=== PATIENT | male | born 1960 | race Caucasian/White ===

== ENCOUNTER 2022-09-03 10:00 | Observation (INO) | payer BC, OTHER ==
[~2022-09-03] VITALS: Ht 172.7 cm; Wt 147.4 kg
[~2022-09-03 10:00] MED LIST: ALLOPURINOL300 MG PO; ASPIR 8181 MG PO; AZOR 5-40 MG T1 EACH PO; AZOR PO; CRESTOR PO; CRESTOR40 MG PO; INSULIN SQ; LEVEMIR100 UNIT/1 SQ; LEVOTHYROXINE200 MCG PO; TRICOR145 MG PO; ZETIA10 MG PO
[2022-09-03] MEDS ORDERED: ONDANSETRON HCL INJ 2MG/ML 2ML 2 MG/ML VIAL IV STA (10:30)
[2022-09-03] MEDS ORDERED: SODIUM CHLORIDE 0.9% 1000ML 1,000 ML IV STA (10:30)
[2022-09-03 11:04] LABS: BASOPHILS # (AUTO) 0.1 (0.0-0.1); BASOPHILS % 0.6 % (0.0-1.0); EOSINOPHILS # (AUTO) 0.1 (0.0-0.4); EOSINOPHILS % 0.9 % (0.0-6.0); HEMATOCRIT 51.8 % (38.2-49.6); HEMOGLOBIN 16.5 g/dL (14.0-18.0); LYMPHOCYTES # (AUTO) 1.7 (1.0-3.2); LYMPHOCYTES % 15.8 % (18.0-39.1); MEAN CORPUSCULAR HEMOGLOBIN 30.4 pg (28-32); MEAN CORPUSCULAR HGB CONC 31.9 g/dL (31-35); MEAN CORPUSCULAR VOLUME 95.6 fL (81-99); MONOCYTES # (AUTO) 1.2 (0.2-0.8); NEUTROPHILS # (AUTO) 7.4 (2.1-6.9); NEUTROPHILS % 69.9 % (38.7-80.0); PLATELET COUNT 366 x10e3/uL (140-360); RED BLOOD COUNT 5.42 x10e6/uL (4.3-5.7); RED CELL DISTRIBUTION WIDTH 13.7 % (11.7-14.4)
[2022-09-03 11:10] LABS: CLARITY,URINE CLEAR (CLEAR); COLOR,URINE YELLOW (YELLOW); KETONES,URINE TRACE (NEGATIVE); LEUKOCYTE ESTERASE ,URINE NEGATIVE (NEGATIVE); NITRITE,URINE NEGATIVE (NEGATIVE); PROTEIN,URINE DIPSTICK 1+ (NEGATIVE); URINE UROBILINOGEN 0.2 mg/dL (0.2 - 1)
[2022-09-03 11:27] LABS: INR 0.94; PROTHROMBIN TIME 13.4 seconds (11.9-14.5)
[2022-09-03 11:28] LABS: PARTIAL THROMBOPLASTIN TIME 25.1 seconds (23.8-35.5)
[2022-09-03 11:30] LABS: BACTERIA,URINE MODERATE /HPF; EPITHELIAL CELLS,URINE MODERATE /LPF; RBC,URINE 0-5 /HPF (0-5); TRANSITIONAL EPI CELLS,URINE FEW
[2022-09-03 11:39] LABS: ALBUMIN 3.5 g/dL (3.5-5.0); ALBUMIN/GLOBULIN RATIO 1.1 (0.8-2.0); ANION GAP 21.5 mmol/L (8-16); CALCIUM 9.7 mg/dL (8.4-10.2); CREATININE, SERUM 1.73 mg/dL (0.72-1.25); MAGNESIUM 2.3 MG/DL (1.3-2.1); POTASSIUM 4.5 mmol/L (3.5-5.1)
[2022-09-03 11:45] LABS: CREATINE KINASE MB 1.8 ng/mL (0-5.0)
[2022-09-03] MEDS ORDERED: IOPAMIDOL 370 MG/ML 100 ML INFUS..BTL INJ ONE (12:23)
[2022-09-03] MEDS ORDERED: ONDANSETRON HCL INJ 2MG/ML 2ML 2 MG/ML VIAL IV PRN (12:30)
[2022-09-03 12:43] LABS: ABG HCO3 22 mmol/L (22-26); ABG PCO2 38 mmHg (35-45); ABG PH 7.36 (7.35-7.45); ABG PO2 98 mmHg (80-105); ABG TCO2 22
[2022-09-03] MEDS ORDERED: CEFTRIAXONE 1 GM VIAL ONE (12:52)
[2022-09-03] MEDS: SODIUM CHLORIDE 0.9% 1000ML 1,000 ML IV SCH ×2 (12:55→23:45)
[2022-09-03] MEDS ORDERED: HYDRALAZINE HCL 20 MG/ML VIAL IV PRN (13:30)
[2022-09-03] MEDS ORDERED: Morphine 2mg Syringe 2 MG/ML SYR IV PRN (14:15)
[2022-09-03] MEDS: FAMOTIDINE 20 MG/2 ML VIAL IV SCH (17:00)
[2022-09-03] MEDS ORDERED: SYNJARDY 12.5-1 EACH PO (18:28)
[2022-09-03] MEDS ORDERED: GLIMEPIRIDE4 MG PO (18:28)
[2022-09-03 18:35] VITALS: BP 100/53
[2022-09-03 18:45] VITALS: BP 100/53
[2022-09-03 19:36] LABS: CREATINE KINASE MB 1.4 ng/mL (0-5.0)
[2022-09-03 21:00] VITALS: BP 100/53
[2022-09-04] VITALS (7 sets, daily range): BP systolic 102–134; BP diastolic 55–74
[2022-09-04 00:15] LABS: CREATINE KINASE 54 IU/L (30-200)
[2022-09-04 04:54] LABS: BASOPHILS # (AUTO) 0.1 (0.0-0.1); BASOPHILS % 0.7 % (0.0-1.0); EOSINOPHILS # (AUTO) 0.1 (0.0-0.4); EOSINOPHILS % 1.3 % (0.0-6.0); HEMATOCRIT 48.7 % (38.2-49.6); HEMOGLOBIN 15.2 g/dL (14.0-18.0); LYMPHOCYTES # (AUTO) 1.6 (1.0-3.2); LYMPHOCYTES % 17.7 % (18.0-39.1); MEAN CORPUSCULAR HGB CONC 31.2 g/dL (31-35); MEAN CORPUSCULAR VOLUME 99.4 fL (81-99); MONOCYTES % 10.6 % (4.4-11.3); NEUTROPHILS # (AUTO) 6.2 (2.1-6.9); NEUTROPHILS % 67.8 % (38.7-80.0); PLATELET COUNT 279 x10e3/uL (140-360); RED CELL DISTRIBUTION WIDTH 14.2 % (11.7-14.4)
[2022-09-04 05:14] LABS: ANION GAP 17.5 mmol/L (8-16); POTASSIUM 4.5 mmol/L (3.5-5.1)
[2022-09-04 05:53] LABS: CHOL/HDL RATIO 5.1 (3.9-4.7); PHOSPHORUS 3.1 MG/DL (2.3-4.7)
[2022-09-04 06:14] LABS: THYROID STIMULATING HORMONE 0.425 uIU/mL (0.350-4.940)
[2022-09-04] MEDS: FAMOTIDINE 20 MG/2 ML VIAL IV SCH ×2 (09:29→16:17)
[2022-09-04] MEDS: SODIUM CHLORIDE 0.9% 1000ML 1,000 ML IV SCH ×2 (15:59→16:17)
[2022-09-05] VITALS: BP 117/58
[2022-09-05 04:00] VITALS: BP 132/73
[2022-09-05] MEDS: SODIUM CHLORIDE 0.9% 1000ML 1,000 ML IV SCH (05:23)
[2022-09-05 05:50] LABS: BASOPHILS # (AUTO) 0.1 (0.0-0.1); BASOPHILS % 0.5 % (0.0-1.0); EOSINOPHILS # (AUTO) 0.1 (0.0-0.4); HEMATOCRIT 45.6 % (38.2-49.6); HEMOGLOBIN 15.2 g/dL (14.0-18.0); LYMPHOCYTES # (AUTO) 2.1 (1.0-3.2); LYMPHOCYTES % 20.3 % (18.0-39.1); MEAN CORPUSCULAR HEMOGLOBIN 31.6 pg (28-32); MEAN CORPUSCULAR HGB CONC 33.3 g/dL (31-35); MEAN CORPUSCULAR VOLUME 94.8 fL (81-99); MONOCYTES # (AUTO) 0.9 (0.2-0.8); MONOCYTES % 8.3 % (4.4-11.3); NEUTROPHILS % 67.7 % (38.7-80.0); PLATELET COUNT 272 x10e3/uL (140-360); RED BLOOD COUNT 4.81 x10e6/uL (4.3-5.7)
[2022-09-05 06:07] LABS: ANION GAP 13.3 mmol/L (8-16); CALCIUM 8.7 mg/dL (8.4-10.2); CREATININE, SERUM 0.8 mg/dL (0.72-1.25); POTASSIUM 4.3 mmol/L (3.5-5.1)
[2022-09-05 08:30] VITALS: BP 132/73
[2022-09-05 08:32] VITALS: BP 150/80
[2022-09-05] MEDS: FAMOTIDINE 20 MG/2 ML VIAL IV SCH (09:15)
[2022-09-05 11:52] VITALS: BP 132/81
== END 2022-09-05 13:21 | disposition home or self-care (01) ==
LOC: ER 10:30 → INTOOBSV 12:41 → ERHOLD 12:41 → MED/SURG 16:40
PROVIDERS: ADMIT Internal Medicine; ATTEND Internal Medicine
DX: R10.9 Unspecified abdominal pain (principal); I10 Essential (primary) hypertension; E11.9 Type 2 diabetes mellitus without complications; E78.5 Hyperlipidemia, unspecified; E03.9 Hypothyroidism, unspecified; K56.609 Unspecified intestinal obstruction, unspecified as to partial versus complete obstruction; K57.30 Diverticulosis of large intestine without perforation or abscess without bleeding; Z20.822 Contact with and (suspected) exposure to COVID-19
CPT/HCPCS: 0223U; 36415 ×3; 36600; 71045; 74177; 80048; 80053 ×2; 80061; 81001; 82550; 82553; 82805; 82948 ×3; 83036; 83690; 83735 ×2; 83880; 84100; 84443; 84484; 85025 ×3; 85610; 85730; 87086; 93005; 96361; 99284; C9113; G0378 ×3; J0696 ×3; J2405; J7030 ×3; Q9967